=== PATIENT | female | born 1975 | race Caucasian/White ===

== ENCOUNTER 2017-04-16 01:10 | Inpatient (IN) | payer OTHER ==
[~2017-04-16] VITALS: Ht 172.7 cm; Wt 65.8 kg
[~2017-04-16 01:10] MED LIST: PREN1TAB80 PO
[2017-04-17] MEDS ORDERED: Lactated Ringer's 1,000 ML IV PRN (07:48)
[2017-04-17] MEDS ORDERED: Oxytocin 30 Units/500 mL LR 30 UNITS in IV Premix 1 EACH IV PRN ×2 (07:50→17:20)
[2017-04-17] MEDS ORDERED: Penicillin G K Inj 5,000,000 UNITS in Dextrose 5% Minibag Plus 100 ML IV ONE (07:50)
[2017-04-17] MEDS ORDERED: Methylergonovine 0.2 mg/mL Inj IM PRN (07:50)
[2017-04-17] MEDS ORDERED: Carboprost 250 mCg/mL Inj IM PRN (07:50)
[2017-04-17] MEDS ORDERED: Hemorrhage Kit, Post Partum XX ONE (07:50)
[2017-04-17] MEDS ORDERED: fentaNYL-PF 50 mCg/mL 2 mL Inj IVPUSH PRN (07:50)
[2017-04-17] MEDS ORDERED: Ondansetron 2 mg/mL 2 mL Inj IVPUSH PRN (07:50)
[2017-04-17] MEDS ORDERED: Sodium Chloride LOK Flush 10 mL Syringe IVFLUSH PRN (07:50)
[2017-04-17] MEDS ORDERED: Oxytocin 10 Unit/mL Inj IM PRN (07:50)
[2017-04-17 08:12] LABS: Mean Corpuscular Hemoglobin 29.1 pg (27.0-35.0)
[2017-04-17] MEDS: Lactated Ringer's 1,000 ML IV SCH (08:36)
[2017-04-17] MEDS: Misoprostol 25 mCg/0.25 Tablet VAGINAL SCH ×3 (08:37→15:12)
[2017-04-17] MEDS: Penicillin G K Inj 3,000,000 UNITS in IV Premix 1 EACH IV SCH ×2 (12:38→16:34)
[2017-04-17] MEDS ORDERED: Lactated Ringer's 1,000 ML IV SCH (17:19)
[2017-04-18] MEDS ORDERED: Penicillin G K Inj 5,000,000 UNITS in Dextrose 5% Minibag Plus 100 ML IV ONE (04:40)
[2017-04-18] MEDS: Lactated Ringer's 1,000 ML IV SCH (07:21)
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
--- NOTE | 2017-04-18 08:19 | PROG NOTE ---
[address] [address] PROGRESS NOTE PATIENT: MARY HADLEY : 1975 MR#: [id number] ADMIT: 04/17/2017 JOB ID: [id number] DATE: 04/17/2017, at 2200 hours [facility] NOTE: The patient was admitted on the morning of April 17, 2017, for cervical ripening/labor induction in the setting of significant advanced maternal age, nearing 42 years of age. Cytotec 25 mcg was given. The patient received separate doses at three hour intervals, with some contractions occurring, although very mild, and cervix not appreciably changing by cervical checks. It was felt that additional cervical ripening would be appropriate. At that point, plans were made for Cervidil use to follow the Cytotec, and to rest the patient overnight during the cervical ripening. Note that the uterine contraction frequency following the Cytotec, although very mild contractions, was too much for Cervidil placement. Patient was thus observed, with plans to give a medication to help her sleep (Ambien), and then with plan to initiate Pitocin, as well as antibiotics (penicillin G) prophylaxis in the morning after 0400 hours on April 18, 2017. It was hoped that a rest period, and then with initiation of the new agent, i.e. Pitocin, will result in improved response of the uterus and cervix with ongoing ripening and induction efforts. IMPRESSION: 1. A 39-2/7 week . 2. Admission for labor induction in the setting of #3. 3. Advanced maternal age. 4. Positive group B Streptococcus status, having received penicillin G prophylaxis during cervical ripening efforts on April 17, 2017, for reinitiation early in the morning of April 18, 2017, after starting Pitocin therapy. PLAN: Continuing hospitalization, cervical ripening plus induction efforts, with the hope that the patient will respond to Pitocin, cervical further dilate and thin, and that we will then be able to artificially rupture membranes and place intrauterine pressure catheter to facilitate this process. LORA
[2017-04-18] MEDS ORDERED: Penicillin G K Inj 3,000,000 UNITS in IV Premix 1 EACH IV SCH (09:00)
[2017-04-18] MEDS ORDERED: Witch Hazel-Glycerin Pads TOPICAL ONE (13:03)
[2017-04-18] MEDS ORDERED: Benzocaine (Dermoplast) 20% 60 Gm Spray TOPICAL ONE (13:03)
[2017-04-18] MEDS ORDERED: Lactated Ringer's 1,000 ML IV SCH (14:41)
[2017-04-18] MEDS ORDERED: LANOlin HPA 7 Gm Ointment TOPICAL PRN (14:45)
[2017-04-18] MEDS ORDERED: Oxytocin 10 Unit/mL Inj IM PRN (14:45)
[2017-04-18] MEDS ORDERED: Witch Hazel-Glycerin Pads TOPICAL PRN (14:45)
[2017-04-18] MEDS ORDERED: Methylergonovine 0.2 mg/mL Inj IM PRN (14:45)
[2017-04-18] MEDS ORDERED: Oxytocin 30 Units/500 mL LR 30 UNITS in IV Premix 1 EACH IV PRN (14:45)
[2017-04-18] MEDS ORDERED: Measles-Mumps-Rubella Vaccine 0.5 mL Inj SUBQ ONE (14:45)
[2017-04-18] MEDS ORDERED: Hemorrhage Kit, Post Partum XX ONE (14:45)
[2017-04-18] MEDS ORDERED: TdaP Vaccine 0.5 mL Inj IM ONE (14:45)
[2017-04-18] MEDS ORDERED: Benzocaine (Dermoplast) 20% 60 Gm Spray TOPICAL PRN (14:45)
[2017-04-18] MEDS ORDERED: Carboprost 250 mCg/mL Inj IM PRN (14:45)
[2017-04-18] MEDS ORDERED: Influenza (Adult) Vaccine 0.5 mL Syringe IM ONE (14:45)
[2017-04-19] MEDS: HYDROcodone-APAP 5-325 mg Tablet PO PRN ×3 (05:54→14:01)
[2017-04-19 08:46] LABS: Mean Corpuscular Hemoglobin 28.7 pg (27.0-35.0); Mean Corpuscular Volume 86.1 fL (81-100)
--- NOTE | 2017-04-19 09:31 | PCM.DIOB ---
Obstetrical Disch Instruction Dates of Hospitalization Date of Hospital Admission Apr 17, 2017 at 07:30 Providers Admitting Physician: Abel Raya MD Primary Care Physician: Abel Raya MD Attending Physician: Abel Raya MD Discharge Diagnosis Problems: (1) Status: Acute ICD Code: Z33.1 (2) Advanced maternal age (AMA) in Status: Acute ICD Code: 659.60 Diet Discharge Diet: No restrictions Activity Discharge Activity-General: Pelvic Rest for 6 weeks Dressing and Incisional Care Hygiene: May shower, Perineal care, Sitz bath, Dermoplast spray, Witch Natasha pads, Ice Follow Up Plan Follow-up appointment: Weeks (Follow up in 6 weeks for appointment.) Call your provider for: Fever or Chills, Shortness of breath, Heavy vaginal bleeding, Red painful breasts Abel Raya MD Apr 19, 2017 09:30
[2017-04-19] MEDS ORDERED: HYDR-4003 PO (09:34)
[2017-04-19] MEDS ORDERED: IBUP-1827 PO (09:34)
[2017-04-19] MEDS ORDERED: DOCU-41 PO (09:34)
[2017-04-19] MEDS ORDERED: FERR-83 PO (09:34)
[2017-04-19 13:13] VITALS: BP 115/71; PULSE 78; RESP 17
--- NOTE | 2017-04-20 00:32 | DIS ---
[address] [address] DISCHARGE SUMMARY PATIENT: MARY HADLEY : 1975 MR#: [id number] ADMIT: 04/17/2017 JOB ID: [id number] DIS: 04/19/2017 DISCHARGE DIAGNOSES: 1. Advanced maternal age. 2. Positive group B Strep status. 3. Term , delivered. PROCEDURE PERFORMED DURING HOSPITALIZATION: 1. Labor induction. 2. Vaginal delivery. 3. Perineal laceration repair. HOSPITAL COURSE: The patient was admitted to [facility] in the morning of April 17, 2017, for cervical ripening with Cytotec, three doses given. Diagnosis advanced maternal age. She subsequently was observed overnight and Pitocin therapy and then artificial rupture of membranes was accomplished early in the morning of April 18, 2017, and intrauterine pressure catheter was placed. Pitocin therapy was provided, and also penicillin G prophylaxis in the setting of group B Strep test positivity. Active phase of labor occurred rapidly between 4-10 cm, approximately 1 hour according to the nurse. Ultimately, vaginal delivery then occurred. During the timeframe, the patient did well in general, with stable vitals, afebrile, ambulating, voiding, with reasonable bleeding and pain management, without leg pain, and handling the baby well. Note that hemoglobin was 8.7, yet initial dizziness resolved and bleeding notably diminished, and the patient requested discharge to home on the 1st day, i.e., on April 19, 2017. Note that she did during the night before discharge experience an episode of abruptly waking up and having a "choking" sensation which she believes was due to dry mouth. She did not have any ongoing shortness of breath, chest pain, or any recurrent episodes of "choking." This was thus not felt to be of any specific significant concern. The patient was requesting discharge on the first day, i.e., on April 19, 2017, and her request was granted. DISCHARGE PROGRAM: The patient will call p.r.n. heavy bleeding, high fever, or other problem, yet otherwise she will follow up at six weeks for checkup with Dr. Raya at [facility]. She will observe pelvic rest for six weeks. DISCHARGE MEDICATIONS: Include: 1. [place] 5/325. 2. Ibuprofen 600. 3. Ferrous sulfate 325 for b.i.d. use. 4. Docusate sodium 100 mg p.o. b.i.d., prescriptions written. 5. vitamins will also be continued at home, the patient has supply.
--- NOTE | 2017-04-21 08:58 | OP ---
[address] [address] OPERATIVE REPORT PATIENT: MARY HADLEY : MR#: [id number] ADMIT: JOB ID: [id number] DATE OF SURGERY: 04/18/2017 SURGEON: PREOPERATIVE DIAGNOSIS(ES): POSTOPERATIVE DIAGNOSIS(ES): [facility] NOTE: The patient was admitted to [facility] on the morning of April 17, 2017, for at and then initiated early this morning. She also underwent artificial rupture of membranes with clear fluid recovered. Intrauterine pressure catheter was placed. The uterine contractions definitely became more intense subsequently and labor progress then occurred, reportedly of one hour duration between 4 and 10 cm . heart tracing was okay. Once completely dilated, patient learned to push well and brought down the head down to and then head delivered. This was followed directly by the body and extremities. Baby was handed to mother for bonding although some decrease in heart rate variability and broken strip accelerations noted and note the baby was active and crying and vigorous on delivery. After a minute, umbilical cord was clamped and cut. Cord blood was then obtained for cord blood banking brought in with her. Blood was obtained sterilely and per directions included in the kit. Betadine solution was used to cleanse the vulvovaginal region. There was an abrasion anterior to the urethra, yet not bleeding and not requiring repair. The was second-degree midline perineal lacerations, yet no rectal involvement. This laceration was closed with 2-0 and 3-0 chromic suture in running stitches, deep and then more superficial, closing with running subcuticular stitch. Hemostasis was noted to be complete by virtue of these procedures and there was no hematoma formation. Note that during the process of perineal examination and stitching, the placenta delivered, intact with membranes. Uterus contracted well with massage plus intravenous Pitocin infusion. Blood loss was in the 250 cc range. At procedure's close, baby and mom were doing very well. Bleeding was minimal. Laceration had been repaired. Instrument, needle, and sponge counts were all found to be correct. Note that patient did receive penicillin G prophylaxis during labor, having received adequate dosing. There was no specific sign of infection during labor.
== END 2017-04-19 14:39 | disposition home or self-care (01) | DRG 775 ==
LOC: FBC 04-17 07:30
PROVIDERS: ADMIT Obstetrics & Gynecology; ATTEND Obstetrics & Gynecology
PROC: 3E0P7GC Introduction of Other Therapeutic Substance into Female Reproductive, Via Natural or Artificial Opening (ICD-10-PCS; 2017-04-17)
PROC: 10E0XZZ Delivery of Products of Conception, External Approach (ICD-10-PCS; principal; 2017-04-18)
PROC: 0KQM0ZZ Repair Perineum Muscle, Open Approach (ICD-10-PCS; 2017-04-18)
PROC: 10907ZC Drainage of Amniotic Fluid, Therapeutic from Products of Conception, Via Natural or Artificial Opening (ICD-10-PCS; 2017-04-18)
PROC: 10H07YZ Insertion of Other Device into Products of Conception, Via Natural or Artificial Opening (ICD-10-PCS; 2017-04-18)
DX: O70.1 Second degree perineal laceration during delivery (principal); Z37.0 Single live birth; O99.824 Streptococcus B carrier state complicating childbirth; Z3A.39 39 weeks gestation of pregnancy

== ENCOUNTER 2017-04-21 20:27 | Emergency (ER) | payer OTHER ==
[~2017-04-21 20:27] MED LIST changes: +DOCU-41 PO; +FERR-83 PO; +HYDR-4003 PO; +IBUP-1827 PO
[2017-04-21 20:30] VITALS: BP 129/81; PULSE 84; RESP 16; O2SAT 99
--- NOTE | 2017-04-21 20:46 | ED.REPORT ---
HPI-Extremity Problem Upper Date of Service Apr 21, 2017 ED Provider: Flavio Thibodeaux MD Nursing Notes Stated Complaint: BILAT SWELLING, LUMP IN RIGHT LEG Chief Complaint: Extremity Trauma Nursing Notes Reviewed: Yes Allergies: Coded Allergies: No Known Allergies (Verified Allergy, Unknown, 04/21/17) Scheduled Docusate Sodium (Colace) 100 Mg Capsule 100 MG PO BID Ferrous Sulfate (Ferrous Sulfate) 325 Mg Tablet 325 MG PO BID Vits W-Ca,Fe,FA(<1Mg) ( Vitamins) 1 Each Tablet 1 EACH PO DAILY Scheduled PRN Hydrocodone-Acetaminophen 5-325 mg (Hydrocodone-Acetaminophen 5-325 mg) 1 Each Tablet 1-2 TABLET PO Q4H PRN PRN For Pain Ibuprofen (Ibuprofen) 600 Mg Tablet 600 MG PO Q6H PRN PRN For Mild Pain General Time Seen by MD: 20:36 Chief Complaint Other (right thigh pain) Hx Obtained From: Patient Arrived By: Walk-in Past Medical History Smoking History Never Smoker Ambulatory Status Independent Review of Systems Musculoskeletal: Reports: Extremity pain, Extremity swelling Complete sys rev & neg: except as marked. Physical Exam Initial Vital Signs Vital Signs (First) Date Time Temp Pulse Resp B/P Pulse Ox O2 Delivery O2 Flow Rate FiO2 04/21/17 20:30 37.1 84 16 129/81 99 Room Air Initial VS: Reviewed, Vital signs normal Re-Eval/Medical Decision Counseled Regarding: Diagnosis, Lab results, Need for follow-up, When/why to return to ED Discharge & Departure Disposition: Home Discharge Condition All VS Reviewed: Yes Condition: Stable Referrals: Abel Raya MD (PCP) Scribe Attestation Portions of this note were transcribed by Hussein Ruvalcaba. I, Dr. Thibodeaux, personally performed the history, physical exam and medical decision-making; I reviewed and confirmed the accuracy of the information in the transcribed note. Signed by Prudencio Weaver, 04/21/17 - 2049 copies to: Abel Raya MD, Ben M MD Apr 21, 2017 20:46 HUSSEIN RUVALCABA Apr 21, 2017 20:48
--- NOTE | 2017-04-21 21:07 | ED.REPORT ---
HPI-General Illness Date of Service Apr 21, 2017 ED Provider: Dr. Bermudez 41 y/o female () three days with no other pertinent hx presents to the ED complaining of right leg swelling onset a few hours ago. She is also complaining of tightness on the inner right thigh and mild intermittent shortness of breath. She denies chest pain. The pt is concerned she may have a blood clot, since she gave 3 days ago. Nursing Notes Stated Complaint: BILAT SWELLING, LUMP IN RIGHT LEG Chief Complaint: Extremity Trauma Nursing Notes Reviewed: Yes Allergies: Coded Allergies: No Known Allergies (Verified Allergy, Unknown, 04/21/17) Scheduled Docusate Sodium (Colace) 100 Mg Capsule 100 MG PO BID Ferrous Sulfate (Ferrous Sulfate) 325 Mg Tablet 325 MG PO BID Vits W-Ca,Fe,FA(<1Mg) ( Vitamins) 1 Each Tablet 1 EACH PO DAILY Scheduled PRN Hydrocodone-Acetaminophen 5-325 mg (Hydrocodone-Acetaminophen 5-325 mg) 1 Each Tablet 1-2 TABLET PO Q4H PRN PRN For Pain Ibuprofen (Ibuprofen) 600 Mg Tablet 600 MG PO Q6H PRN PRN For Mild Pain General Time Seen by MD: 21:06 Chief Complaint Other (right le swelling) Hx Obtained From: Patient Arrived By: Walk-in Sudden in Onset?: Yes Onset Occurred: 1 - 4 hours ago Symptom Duration: Since onset Severity: Current: No pain currently Severity: Maximum: No pain Recent Healthcare: Recent doctor visit Similar Sx Previous: No Past Medical History Past Medical History none reported Past Surgical History none reported Smoking History Unknown if Ever Smoker Social History Other Social History: Good social support, Ambulatory Status Independent Review of Systems Reports: tightness in inner right thigh Full Review of Systems Respiratory: Reports: Shortness of breath (mild and intermittent) Cardiovascular: Denies: Chest pain Musculoskeletal: Reports: Extremity swelling (right leg) Complete sys rev & neg: except as marked. Physical Exam Vital Signs Vital Signs Date Time Temp Pulse Resp B/P Pulse Ox O2 Delivery O2 Flow Rate FiO2 04/21/17 22:19 37.1 83 14 125/84 99 Room Air 04/21/17 20:30 37.1 84 16 129/81 99 Room Air Initial VS: Reviewed, Vital signs normal Head / Eyes: Atraumatic, Normocephalic Neck: Supple, Non-tender, Full range of motion Respiratory: Breath sounds normal, No respiratory distress Cardiovascular: Regular rate & rhythm, Intact distal pulses Skin: Warm, Dry, No cyanosis Neurologic: Alert, Oriented, Nonfocal General/Constitutional: Awake, Alert, No acute distress, Well appearing, Cooperative Lower Extremity / Pelvis / MS: Atraumatic, Full range of motion, No deformity, Neurologic intact, Vascular intact Medial thigh area is tender and firm. Trace edema in right leg. Ankle / Foot: Atraumatic, Full range of motion, Non-tender, No deformity, Neurologic intact Interpretation & Diagnostics Exam: US Venous Duplex Result: No DVT Discussed with Radiologist over the phone Re-Eval/Medical Decision Med Decision/Clinical Course 41-year-old female just three days with a tender area in her medial right thigh. She is concerned about DVT and has no evidence of DVT on ultrasound. This appears to be muscular strain and hematoma, but no evidence of intravascular clot. Discharged home in stable condition for follow-up with PCP when necessary. Hot soaks rest and elevation advised. Time of Eval: 22:02 Re-Evaluation/Progress Note: Rechecked pt. Discussed imaging results, diagnosis and plan to discharge. Pt understands and agrees with the plan. F/U instructions and RTER warning given. All questions addressed. Counseled Regarding: Diagnosis, Need for follow-up, When/why to return to ED Discharge & Departure Primary Impression: Hematoma of right thigh Disposition: Home Discharge Condition All VS Reviewed: Yes Condition: Stable Patient Instructions: Hematoma (ED) Additional Instructions: There is no evidence of clot in her veins. This is likely a hematoma in the soft tissue, but not in the vascular space. Apply heating pad or hot soaks to the area three or four times daily. Follow- up with your doctor in the office. Referrals: Abel Raya MD (PCP) [facility] Scribdiana Attestation Portions of this note were transcribed by Alicia Salcedo. I, , personally performed the history, physical exam and medical decision- making;I reviewed and confirmed the accuracy of the information in the transcribed note. Signed by Prudencio Cordoba. 04/21/17 22:04 copies to: Abel Raya MD, Christopher W MD Apr 21, 2017 21:07 Alicia Salcedo Apr 21, 2017 21:15
--- NOTE | 2017-04-21 22:12 | DRSVH ---
PROCEDURE: US VEINOUS LEG DUPLEX UNILATERAL, RIGHT INDICATIONS: rt leg tenderness swelling two days post TECHNIQUE: Real-time imaging, as well as color and pulse Doppler interrogation, were performed of the lower extr emity deep veins from the inguinal ligament to the popliteal fossa. COMPARISON: None. FINDINGS: The deep veins are normally compressible, and free of intraluminal thrombus. Color and pu lse Doppler demonstrate normal phasic intraluminal flow. There is normal augmentation response to di stal compression maneuver. IMPRESSION: No evidence of deep venous thrombosis. Dictated by: Ade Russell M.D. on 04/21/2017 at 22:11 Approved by: Ade Russell M.D. on 04/21/2017 at 22:11
[2017-04-21 22:19] VITALS: BP 125/84; PULSE 83; RESP 14; O2SAT 99
== END 2017-04-21 22:20 | disposition home or self-care (01) ==
LOC: SED 20:27
DX: O90.89 Other complications of the puerperium, not elsewhere classified (principal); S70.11XA Contusion of right thigh, initial encounter; X58.XXXA Exposure to other specified factors, initial encounter; Y93.9 Activity, unspecified; Y92.9 Unspecified place or not applicable; Y99.9 Unspecified external cause status